=== PATIENT | female | born 1965 | race Caucasian/White ===

== ENCOUNTER 2020-10-12 12:52 | Emergency (ER) | payer BC, OTHER ==
[2020-10-12] MEDS ORDERED: Bacitracin/Polymyxin B Ophth Oint 3.5 GM Tube ONE (13:21)
[2020-10-12] MEDS ORDERED: predniSONE 20 MG Tab PO ONE (13:34)
[2020-10-12] MEDS ORDERED: valACYclovir 1,000 MG Tab ONE (13:34)
[2020-10-12] MEDS ORDERED: valACYclovir 1,000 MG Tab PO SCH (18:00)
[2020-10-12] MEDS ORDERED: Bacitracin/Polymyxin B Ophth Oint 3.5 GM Tube EYELF SCH (18:00)
--- NOTE | 2020-10-12 23:51 | EDM.PDOC ---
ED HPI GENERAL MEDICAL PROBLEM - General Chief Complaint: General Stated Complaint: Left side facial droop Time Seen by Provider: 10/12/20 13:15 Source of Information: Reports: Patient History Limitations: Reports: No Limitations - History of Present Illness INITIAL COMMENTS - FREE TEXT/NARRATIVE: Pt. presents to ER with approx. 24 hour history of progressive L sided facial droop. Pt. states that this started the previous day. Denies any headache or head injury. No numbness/tingling/weakness in extremities. No problems with speech or ambulation. Denies any acute vision loss or change, but reports that she has some trouble keeping her L eye closed. Onset Date: 10/11/20 Location: Reports: Face Associated Symptoms: Denies: Confusion, Chest Pain, Cough, Fever/Chills, Headaches, Malaise, Nausea/Vomiting, Rash, Seizure, Syncope, Weakness Left Face/Facial Pain Score (Numeric/FACES): 0 - Related Data Allergies Allergy/AdvReac Type Severity Reaction Status Date / Time No Known Allergies Allergy Verified 10/12/20 12:57 Home Meds: Home Meds Aspirin [Adult Aspirin Regimen] 81 mg PO DAILY 10/12/20 [History] Multivitamin [Multi-Vitamin Daily] 1 tab PO DAILY 10/12/20 [History] Potassium Chloride 10 meq PO DAILY 10/12/20 [History] Past Medical History HEENT History: Reports: Impaired 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: Other Musculoskeletal History: Pt stated, "My mom has back pain issues and recently had surgery for it." Other Oncologic History: Pt stated, "My sister had breast cancer." - Infectious Disease History Infectious Disease History: Reports: Chicken Pox Other Infectious Disease History: Pt stated, "I was roughly 10." - Past Surgical History HEENT Surgical History: Reports: None Social & Family History - Tobacco Use Tobacco Use Status *Q: Never Tobacco User Second Hand Smoke Exposure: No - Caffeine Use Caffeine Use: Reports: Soda - Recreational Drug Use Recreational Drug Use: No ED ROS GENERAL - Review of Systems Review Of Systems: See Below Constitutional: Reports: No Symptoms HEENT: Reports: Other (See HPI). Denies: Ear Pain, Sinus Problem, Throat Pain, Throat Swelling, Vertigo, Vision Change Respiratory: Reports: No Symptoms Cardiovascular: Reports: No Symptoms Endocrine: Reports: No Symptoms GI/Abdominal: Reports: No Symptoms : Reports: No Symptoms Musculoskeletal: Reports: No Symptoms Skin: Reports: No Symptoms Neurological: Reports: Paresthesia, Weakness (L side of face.). Denies: Confusion, Dizziness, Headache, Syncope, Tingling, Tremors, Trouble Speaking, Difficulty Walking, Change in Speech, Gait Disturbance Psychiatric: Reports: No Symptoms Hematologic/Lymphatic: Reports: No Symptoms Immunologic: Reports: No Symptoms ED EXAM, GENERAL - Physical Exam Exam: See Below Exam Limited By: No Limitations General Appearance: Alert, WD/WN, No Apparent Distress Eye Exam: Bilateral Eye: EOMI, Normal Fundi, Normal Inspection, PERRL Ears: Normal External Exam, Hearing Grossly Normal Nose: Normal Inspection, Normal Mucosa, No Blood Throat/Mouth: Normal Inspection, Normal Lips, Normal Teeth, Normal Gums, Normal Oropharynx, Normal Voice, No Airway Compromise Head: Atraumatic, Normocephalic Neck: Normal Inspection, Supple, Non-Tender, Full Range of Motion Respiratory/Chest: No Respiratory Distress, Lungs Clear, Normal Breath Sounds, No Accessory Muscle Use, Chest Non-Tender Cardiovascular: Normal Peripheral Pulses, Regular Rate, Rhythm, No Edema, No Gallop, No JVD, No Murmur, No Rub Peripheral Pulses: 4+: Radial (R) GI/Abdominal: Normal Bowel Sounds, Soft, Non-Tender, No Distention, No Mass (Female) Exam: Deferred Rectal (Female) Exam: Deferred Back Exam: Normal Inspection, Full Range of Motion Extremities: Normal Inspection, Normal Range of Motion, Non-Tender, No Pedal Edema, Normal Capillary Refill Neurological: Alert, Oriented, Normal Cognition, Normal Gait, Normal Reflexes, No Motor/Sensory Deficits, Sensory/Motor Deficit, Other (No pronator drift. No drift of lower extremities. Romberg is negative. Speech is fluent. Speech content is normal. Cerbellar function (heel galvin test) normal. 5/5 strength in upper and lower extremities. Pt. alert to time, date and place and follows commands.). No: CN II-XII Intact (palsy of CN VII. Other CN intact), Inattentive, Confused, Disoriented, Slow to Respond, Unresponsive, Memory Loss Remote Events, Memory Loss Recent Events, Abnormal Gait, Abnormal Reflexes Psychiatric: Normal Affect, Normal Mood Skin Exam: Warm, Dry, Intact, Normal Color, No Rash Lymphatic: No Adenopathy Course - Vital Signs Last Recorded V/S: Last Vital Signs Temp 36.8 C 10/12/20 13:01 Pulse 88 10/12/20 13:01 Resp 20 10/12/20 13:01 BP 157/85 H 10/12/20 13:31 Pulse Ox 99 10/12/20 13:01 - Orders/Labs/Meds Meds: Medications Discontinued Medications Generic Name Dose Route Start Last Admin Trade Name María Elena PRN Reason Stop Dose Admin Bacitracin/Polymyxin B Sulfate 1 gm 10/12/20 18:00 Bacitracin/Polymyxin B Ophth Oint 3.5 Gm Tube EYELF TID EDNA Bacitracin/Polymyxin B Sulfate Confirm 10/12/20 13:21 10/12/20 13:25 Bacitracin/Polymyxin B Ophth Oint 3.5 Gm Tube Administered 10/12/20 13:22 1 applic Dose Administration 3.5 gm .ROUTE .STK-MED ONE Prednisone 80 mg 10/12/20 13:34 10/12/20 13:40 Prednisone 20 Mg Tab PO 10/12/20 13:35 80 mg ONETIME ONE Administration Valacyclovir HCl 1,000 mg 10/12/20 18:00 10/12/20 13:40 Valacyclovir 1,000 Mg Tab PO 1,000 mg TID EDNA Administration Valacyclovir HCl Confirm 10/12/20 13:34 10/12/20 13:41 Valacyclovir 1,000 Mg Tab Administered 10/12/20 13:35 Not Given Dose 3,000 mg .ROUTE .STK-MED ONE Departure - Departure Time of Disposition: 14:00 Disposition: Home, Self-Care 01 Clinical Impression: Copeland's palsy - Discharge Information Instructions: Copeland Palsy, Adult, Bacitracin eye ointment, Valacyclovir caplets, Prednisone tablets Referrals: PCP,Unknown [Primary Care Provider] - Forms: ED Department Discharge Additional Instructions: Valacyclovir 1000mg 1 dose three times daily for 7 days Prednisone 80mg once daily Polytrim ointment apply to L eye, especially before bed to keep eye moist Follow-up in clinic in 7-10 days Sepsis Event Note (ED) - Evaluation Sepsis Screening Result: No Definite Risk - Focused Exam Vital Signs: Vital Signs Temp Pulse Resp BP Pulse Ox 10/12/20 13:31 157/85 H 10/12/20 13:01 36.8 C 88 20 169/85 H 99 - Problem List Review Problem List Initiated/Reviewed/Updated: Yes - Assessment/Plan Plan: Valacyclovir 1000mg 1 dose three times daily for 7 days Prednisone 80mg once daily Polytrim ointment apply to L eye, especially before bed to keep eye moist Follow-up in clinic in 7-10 days
== END 2020-10-12 13:45 | disposition home or self-care (01) ==
LOC: LL.ED 12:52
DX: G51.0 Bell's palsy (principal); Z79.82 Long term (current) use of aspirin
CPT/HCPCS: 99283; 99284; A9270-GY; J7512